=== PATIENT | female | born 1975 | race Two or more races ===

== ENCOUNTER → 2024-08-11 | Outpatient (BNVA) | payer MEDICAID, SELFPAY | END | disposition home or self-care (01) | PROVIDERS: PCP Nurse Practitioner Primary Care; Referring Provider Nurse Practitioner Primary Care; Visit Provider Nurse Practitioner Primary Care | DX: I15.2 Hypertension secondary to endocrine disorders (principal); E78.2 Mixed hyperlipidemia; E11.8 Type 2 diabetes mellitus with unspecified complications; Z79.4 Long term (current) use of insulin; G47.00 Insomnia, unspecified | CPT/HCPCS: 99213 ==

== ENCOUNTER → 2024-10-19 | Outpatient (BNVA) | payer MEDICAID, SELFPAY | END | disposition home or self-care (01) | PROVIDERS: PCP Nurse Practitioner Primary Care; Referring Provider Nurse Practitioner Primary Care; Visit Provider Nurse Practitioner Primary Care | DX: Z00.01 Encounter for general adult medical examination with abnormal findings (principal); E11.8 Type 2 diabetes mellitus with unspecified complications; R10.12 Left upper quadrant pain; R63.4 Abnormal weight loss; R11.0 Nausea; I15.2 Hypertension secondary to endocrine disorders; E78.2 Mixed hyperlipidemia; Z79.4 Long term (current) use of insulin; Z23 Encounter for immunization | CPT/HCPCS: 90471; 90472; 90677; 90715; 93005; 96372; 99215; J90677 ==

== ENCOUNTER → 2024-10-21 | Outpatient (BNVA) | payer MEDICAID, SELFPAY | END | disposition home or self-care (01) | PROVIDERS: PCP Nurse Practitioner Primary Care; Referring Provider Nurse Practitioner Primary Care; Visit Provider Nurse Practitioner Primary Care | DX: N93.9 Abnormal uterine and vaginal bleeding, unspecified (principal); Z12.4 Encounter for screening for malignant neoplasm of cervix | CPT/HCPCS: 81001; 99215; Q0091 ==

== ENCOUNTER → 2024-11-04 | Outpatient (BNVA) | payer MEDICAID, SELFPAY | END | disposition home or self-care (01) | PROVIDERS: PCP Nurse Practitioner Primary Care; Referring Provider Nurse Practitioner Primary Care; Visit Provider Nurse Practitioner Primary Care | DX: Z71.2 Person consulting for explanation of examination or test findings (principal) | CPT/HCPCS: 99212; G0463 ==

== ENCOUNTER → 2024-11-24 | Outpatient (BNVA) | payer MEDICAID, SELFPAY | END | disposition home or self-care (01) | PROVIDERS: PCP Nurse Practitioner Primary Care; Referring Provider Nurse Practitioner Primary Care; Visit Provider Nurse Practitioner Primary Care | DX: E11.9 Type 2 diabetes mellitus without complications (principal); I15.2 Hypertension secondary to endocrine disorders; Z79.4 Long term (current) use of insulin; E78.2 Mixed hyperlipidemia; Z71.2 Person consulting for explanation of examination or test findings | CPT/HCPCS: 99212; G0463 ==

== ENCOUNTER → 2024-12-21 | Outpatient (BNVA) | payer MEDICAID, SELFPAY | END | disposition home or self-care (01) | PROVIDERS: PCP Nurse Practitioner Primary Care; Referring Provider Nurse Practitioner Primary Care; Visit Provider Nurse Practitioner Primary Care | DX: Z12.31 Encounter for screening mammogram for malignant neoplasm of breast (principal) | CPT/HCPCS: 99213; 99214 ==

== ENCOUNTER → 2025-03-29 | Outpatient (BNVA) | payer MEDICAID, SELFPAY | END | disposition home or self-care (01) | PROVIDERS: PCP Nurse Practitioner Primary Care; Referring Provider Nurse Practitioner Primary Care; Visit Provider Nurse Practitioner Primary Care | DX: Z09 Encounter for follow-up examination after completed treatment for conditions other than malignant neoplasm (principal); E11.65 Type 2 diabetes mellitus with hyperglycemia; Z12.31 Encounter for screening mammogram for malignant neoplasm of breast; I10 Essential (primary) hypertension; Z23 Encounter for immunization | CPT/HCPCS: 85018; 90471; 90686; 99214 ==

== ENCOUNTER → 2025-04-14 | Outpatient (CLI) | payer MEDICAID, SELFPAY ==
--- NOTE | 2025-04-14 16:15 | XR_ITS ---
Examination: Screening digital mammography, bilateral Computer aided detection 3-D breast Tomosynthesis, bilateral Date and time of exam: April 14, 2025, 1623 hours, compared to mammograms dating to 02/19/2008 Indication: Screening Technique: Nonmagnified MLO, CC views of the breasts to been obtained, reconstructed from 3-D Tomosynthesis images. R2 computer aided detection program utilized for evaluation of suspicious masses and/or abnormal calcifications. 3-D Tomosynthesis images obtained. Findings: Scattered areas of fibroglandular density Benign calcifications No interval suspicious masses Impression: BI-RADS category II: Benign Findings. Recommend 1 year follow-up mammogram.
== END | disposition home or self-care (01) ==
LOC: CDIM 16:06
PROVIDERS: Referring Provider Nurse Practitioner Primary Care; Visit Provider Nurse Practitioner Primary Care
DX: Z12.31 Encounter for screening mammogram for malignant neoplasm of breast (principal); R92.323 Mammographic fibroglandular density, bilateral breasts; R92.1 Mammographic calcification found on diagnostic imaging of breast
CPT/HCPCS: 77063; 77067

== ENCOUNTER → 2025-04-21 | Outpatient (BNVA) | payer MEDICAID, SELFPAY | END | disposition home or self-care (01) | PROVIDERS: PCP Nurse Practitioner Primary Care; Referring Provider Nurse Practitioner Primary Care; Visit Provider Nurse Practitioner Primary Care | DX: Z12.31 Encounter for screening mammogram for malignant neoplasm of breast (principal) ==